=== PATIENT | female | born 1980 | race Caucasian/White ===

== ENCOUNTER → 2021-05-19 | Outpatient (CLI) | payer OTHER | LOC: EXRD 13:58 | DX: M54.89 Other dorsalgia (principal); M53.3 Sacrococcygeal disorders, not elsewhere classified | CPT/HCPCS: 72202 ==

== ENCOUNTER → 2021-09-03 | Outpatient (CLI) | payer OTHER | LOC: KOH-I 08-26 10:30 | DX: M46.1 Sacroiliitis, not elsewhere classified (principal); N83.9 Noninflammatory disorder of ovary, fallopian tube and broad ligament, unspecified | CPT/HCPCS: 72195 ==